=== PATIENT | male | born 1940 | race Caucasian/White ===

== ENCOUNTER 2017-09-04 22:49 | Inpatient (IN) | payer MEDICARE ==
[2017-09-04] MEDS ORDERED: MORPHINE SULFATE 10 MG/ML INJ ONE (23:09)
[2017-09-04] MEDS ORDERED: MORPHINE SULFATE 10 MG/ML INJ IV PRN (23:16)
[2017-09-04] MEDS ORDERED: NORMAL SALINE 1000 ML 1,000 ML IV ONE (23:17)
[2017-09-04] MEDS ORDERED: PIPERACILLIN/TAZOBACTAM 3.375 GM VIAL IV ONE (23:17)
[2017-09-04] MEDS ORDERED: ONDANSETRON HCL INJ/PF 4 MG/2 ML SDV IV ONE (23:17)
--- NOTE | 2017-09-04 23:22 | ER Document Report ---
ED General - General Chief Complaint: Abdominal Pain Stated Complaint: LOWER ABDOMINAL PAIN Time Seen by Provider: 09/04/17 23:04 Notes: Patient is a 77 year old male without chronic medical problems, recently placed on prednisone, meloxicam and has continued takes his aspirin for some low back pain who presents with acute onset of severe, generalized abdominal pain. Family provides majority of the history as the patient is in such severe pain he is unable to answer many of my questions. Family states that tonight shortly after dinner the patient began complaining of severe, cramping, stabbing abdominal pain. Nothing seemed to improve or worsen his pain got progressively worse prompting the family to come to the emergency department. The patient has no history of similar symptoms in the past. He does not take any form of anticoagulation. He has never had abdominal surgery in the past. History is otherwise limited secondary to the patient's acuity. - Related Data Allergies/Adverse Reactions: No Known Allergies Allergy (Unverified 09/05/17 00:49) Past Medical History - General Information source: Patient - Social History Smoking Status: Former Smoker Frequency of alcohol use: None Drug Abuse: None Lives with: Family Family History: Reviewed & Not Pertinent Review of Systems - Review of Systems Notes: Constitutional: Negative for fever. HENT: Negative for sore throat. Eyes: Negative for visual changes. Cardiovascular: Negative for chest pain. Respiratory: Negative for shortness of breath. Gastrointestinal: Positive for abdominal pain Genitourinary: Negative for dysuria. Musculoskeletal: Negative for back pain. Skin: Negative for rash. Neurological: Negative for headaches, weakness or numbness. 10 point ROS negative except as marked above and in HPI. Physical Exam - Vital signs Vitals: Pulse Resp BP Pulse Ox 55 L 20 123/69 98 09/04/17 22:57 09/04/17 22:57 09/04/17 22:57 09/04/17 22:57 Interpretation: Bradycardic Notes: PHYSICAL EXAMINATION: GENERAL: Appears extremely ill, pale, diaphoretic and listless HEAD: Atraumatic, normocephalic. EYES: Pupils equal round and reactive to light, extraocular movements intact, sclera anicteric, conjunctiva are normal. ENT: nares patent, oropharynx clear without exudates. Moderately dry mucous membranes. NECK: Normal range of motion, supple without lymphadenopathy LUNGS: Breath sounds clear to auscultation bilaterally and equal. No wheezes rales or rhonchi. HEART: Regular rate and rhythm without murmurs ABDOMEN: Firm, diffuse involuntary guarding. Bedside fast shows positive free fluid in the right upper quadrant view as well as in the pelvic view. EXTREMITIES: no pitting or edema. No cyanosis. NEUROLOGICAL: No focal neurological deficits. Moves all extremities spontaneously and on command. PSYCH: Listless, somewhat anxious SKIN: Cool, pale, diaphoretic Course - Re-evaluation Re-evalutation: 09/04/17 23:20 Patient presents extremely ill in appearance, pale, diaphoretic, somewhat listless. Patient has a rigid abdomen, has been taking prednisone, meloxicam, aspirin for back pain and I immediately assessed the patient upon arrival. A bedside FAST exam shows free fluid in the right upper quadrant as well as in the pelvic window. Patient will immediately go to CT scan without waiting for labs as he is critically ill in appearance and I cannot wait for that duration of time as he could further deteriorate. As soon as the CT has been completed, will discuss with radiology and surgery. Patient is critically ill and will require frequent reassessments. 09/04/17 23:51 I have reviewed the CT and it appears to show free fluid and air in the abdomen and pelvis. I have immediately contacted the surgeon plant floor automation manager Dr. Westbrook and asked him to come to the bedside immediately. Will continue to reassess the patient at regular intervals. He is receiving IV fluids as well as IV Zosyn. 09/05/17 00:18 Patient continues to be hemodynamically within normal limits but continues to be very ill in appearance, pale, diaphoretic and holding his abdomen. Dr. Westbrook has assessed the patient and will admit to the operating room. Continue to monitor until that time. 09/05/17 0045 Patient going to the operating room at this time - Vital Signs Vital signs: Temp Pulse Resp BP Pulse Ox 97.7 F 55 L 20 152/77 H 99 09/04/17 23:16 09/04/17 22:57 09/05/17 00:39 09/05/17 00:39 09/05/17 00:39 - Laboratory Result Diagrams: 09/04/17 23:12 09/04/17 23:12 Laboratory results interpreted by me: 09/04/17 09/04/17 23:12 23:12 WBC 11.1 H RBC 4.18 L Sodium 136.1 L BUN 51 H Creatinine 1.57 H Est GFR ( Amer) 52 L Est GFR (Non-Af Amer) 43 L Glucose 142 H Calcium 10.8 H Direct Bilirubin 0.5 H - Diagnostic Test Radiology reviewed: Image reviewed, Reports reviewed Radiology results interpreted by me: 09/05/17 00:18 CT abdomen pelvis: Free air and fluid in the abdomen and pelvis - EKG Interpretation by Me Additional EKG results interpreted by me: 09/05/17 03:19 Sinus rhythm. Rate 65. No ST elevations or depressions. QTC is 445. Critical Care Note - Critical Care Note Total time excluding time spent on procedures (mins): 38 Comments: Critical care time spent obtaining history from patient or surrogate, discussions with consultants, development of treatment plan with patient or surrogate, evaluation of patient's response to treatment, examination of patient , ordering and performing treatments and interventions, ordering and review of laboratory studies, re-evaluation of patient's condition, ordering and review of radiographic studies and review of old charts Discharge - Discharge Clinical Impression: Acute abdomen, Intra-abdominal free air of unknown etiology Intra-abdominal fluid Qualifiers: Ascites type: other type Qualified Code(s): R18.8 - Other ascites Condition: Critical Disposition: ADMITTED INPATIENT Admitting Provider: Surgicalist Unit Admitted: OR
[2017-09-04 23:26] LABS: ABSOLUTE LYMPHOCYTES (AUTO) 2.6 10^3/uL (0.5-4.7); ABSOLUTE MONOCYTES (AUTO) 0.5 10^3/uL (0.1-1.4); BASOPHILS % (AUTO) 0.4 % (0-2); HEMATOCRIT 39.8 % (37.9-51.0); HEMOGLOBIN 13.8 g/dL (13.5-17.0); LYMPHOCYTES % (AUTO) 23.6 % (13-45); MEAN CORPUSCULAR HEMOGLOBIN 33.1 pg (27.0-33.4); MEAN CORPUSCULAR HGB CONC 34.7 g/dL (32.0-36.0); MEAN CORPUSCULAR VOLUME 95 fl (80-97); MONOCYTES % (AUTO) 4.4 % (3-13); PLATELET COUNT 193 10^3/uL (150-450); RED BLOOD COUNT 4.18 10^6/uL (4.35-5.55); RED CELL DISTRIBUTION WIDTH 13.4 % (11.5-14.0); SEGMENTED NEUTROPHILS % (AUTO) 71.6 % (42-78); TOTAL CELLS COUNTED % (AUTO) 100 %; WHITE BLOOD COUNT 11.1 10^3/uL (4.0-10.5)
[2017-09-04 23:54] LABS: ALANINE AMINOTRANSFERASE 25 U/L (21-72); ALBUMIN 3.9 g/dL (3.5-5.0); ALKALINE PHOSPHATASE 73 U/L (38-126); ANION GAP 8 (5-19); ASPARTATE AMINO TRANSFERASE 22 U/L (17-59); BILIRUBIN,DIRECT 0.5 mg/dL (0.0-0.4); BILIRUBIN,TOTAL 0.7 mg/dL (0.2-1.3); BLOOD UREA NITROGEN 51 mg/dL (7-20); CALCIUM 10.8 mg/dL (8.4-10.2); CARBON DIOXIDE 29 mmol/L (22-30); CHLORIDE 99 mmol/L (98-107); GLUCOSE 142 mg/dL (75-110); POTASSIUM 4.7 mmol/L (3.6-5.0); SODIUM 136.1 mmol/L (137-145); TOTAL PROTEIN 6.7 g/dL (6.3-8.2)
--- NOTE | 2017-09-05 00:08 | RADIOLOGY REPORT (SQ) ---
EXAM DESCRIPTION: CT ABDOMEN PELVIS WITH IV CONTRAST COMPLETED DATE/TME: 09/04/2017 23:04 CLINICAL HISTORY: 77 years Male, lower ab pain Comparison: None. Technique: IV contrast. Coronal and sagittal reformat. This exam was performed according to our departmental dose-optimization program, which includes automated exposure control, adjustment of the mA and/or kV according to patient size and/or use of iterative reconstruction technique.[facility]: Dose Right [facility]: CareDose [facility]: Dose Right [facility]: Teradose 4D [facility]: Kabbage LIMITATIONS: None Findings: No ascites. Moderate vacuum disc desiccation between the L2 and S1 levels, moderate coronary arterial consultation, moderate ascites including bilateral subdiaphragmatic, right lower abdominal quadrant, and pelvis. 5.1 cm diameter prostate. Colonic diverticulosis. Mild diffuse small bowel mural thickening and small cysts surrounding streaky fat. 2.3 cm likely benign right renal cyst. Posterior element resection at the L 3-L5 levels. Moderate irregular endplates at the L3-L4 level. Paraspinal soft tissues appear unremarkable. Moderate sclerosis of vertebral bodies between the L2 and L4 levels. Normal-appearing appendix partially visualized. Inferior thorax, liver, gallbladder, pancreas, spleen, adrenals, renal system, pelvic organs, lymphatics, vasculature, and musculoskeleton appear otherwise unremarkable. IMPRESSION: 1. Mild diffuse inflammation of small bowel. Moderate ascites. Normal appearing appendix partially visualized. Differential etiologies include infectious, inflammatory, and neoplastic processes. Consider IV and oral contrast CT surveillance as clinically warranted. 2. Irregular vertebral endplates at the L3-L4 level. Differential diagnosis includes advanced osteoarthritis and infectious discitis. Recommend further evaluation with contrast MRI and/or laboratory correlation.
[2017-09-05] MEDS ORDERED: METOCLOPRAMIDE HCL INJ/PF 10 MG/2 ML SDV ONE (00:09)
[2017-09-05] MEDS ORDERED: METOCLOPRAMIDE HCL INJ/PF 10 MG/2 ML SDV IV ONE (00:09)
--- NOTE | 2017-09-05 00:26 | PDOC H&P ---
History of Present Illness Admission Date/PCP: 09/05/17 Patient complains of: abdominal pain History of Present Illness: WALLY OWEN is a 77 year old male wiyh the sudden onset of abdominal pain 3 hrs prior to coming to ER, now localized in the lower abdomen. The patient is on steriods 20 mg Prednisone daily and Mobic for back pain. A CT scan A/P shows free intraperitineal fluid and air.o Social History Information Source: Patient Lives with: Family Smoking Status: Former Smoker Frequency of Alcohol Use: None Hx Recreational Drug Use: No Hx Prescription Drug Abuse: No Family History Family History: Reviewed & Not Pertinent Parental Family History Reviewed: No Children Family History Reviewed: No Sibling(s) Family History Reviewed.: No Physical Exam Vital Signs: Temp Pulse Resp BP Pulse Ox 55 L 20 123/69 98 09/04/17 22:57 09/04/17 22:57 09/04/17 22:57 09/04/17 22:57 Intake & Output 09/03/17 09/04/17 09/05/17 06:59 06:59 06:59 Weight 72.3 kg General appearance: PRESENT: mild distress Head exam: PRESENT: atraumatic Eye exam: PRESENT: EOMI Mouth exam: PRESENT: neck supple Teeth exam: PRESENT: edentulous Neck exam: PRESENT: full ROM Respiratory exam: PRESENT: clear to auscultation mathew Cardiovascular exam: PRESENT: RRR GI/Abdominal exam: PRESENT: hypoactive bowel sounds, tenderness - diffusely Rectal exam: PRESENT: deferred Extremities exam: PRESENT: full ROM Musculoskeletal exam: PRESENT: full ROM Neurological exam: PRESENT: alert, oriented to time, oriented to situation Psychiatric exam: PRESENT: anxious Skin exam: PRESENT: warm Results Laboratory Results: 09/04/17 23:12 09/04/17 23:12 09/04/17 09/04/17 23:12 23:12 WBC 11.1 H RBC 4.18 L Hgb 13.8 Hct 39.8 MCV 95 MCH 33.1 MCHC 34.7 RDW 13.4 Plt Count 193 Seg Neutrophils % 71.6 Lymphocytes % 23.6 Monocytes % 4.4 Eosinophils % 0.0 Basophils % 0.4 Absolute Neutrophils 8.0 Absolute Lymphocytes 2.6 Absolute Monocytes 0.5 Absolute Eosinophils 0.0 Absolute Basophils 0.0 Sodium 136.1 L Potassium 4.7 Chloride 99 Carbon Dioxide 29 Anion Gap 8 BUN 51 H Creatinine 1.57 H Est GFR ( Amer) 52 L Est GFR (Non-Af Amer) 43 L Glucose 142 H Calcium 10.8 H Total Bilirubin 0.7 AST 22 ALT 25 Alkaline Phosphatase 73 Total Protein 6.7 Albumin 3.9 Assessment & Plan - Diagnosis (1) Perforated bowel Is this a current diagnosis for this admission?: Yes - Plan Summary Plan Summary: A/ free intraperitoneal air and fluid sudden inset abdominal pain 3 hrs prior to coming to ER Patiemt on 20 mg Prednisone daily for back issues Patient on Mobic daily for back issues P/ Emergent exploratory laparotomy, bowel resection, repair of perforated viscus, ostomy Procedure, risks, benefits, complications explained to the patient and family, their questions were answer, and he decides to proceed. Zosyn 3.375 gr IVPB preop Hydrocortisone 100 mg IVP preop IV Fluids
[2017-09-05] MEDS ORDERED: BUPIVACAINE HCL 0.5%-EPI 1:200000 INJ/PF 30 ML VIAL ONE (00:28)
[2017-09-05 00:56] LABS: APPEARANCE,URINE CLEAR; BILIRUBIN,URINE NEGATIVE (NEGATIVE); COLOR,URINE YELLOW; GLUCOSE, URINE NEGATIVE (NEGATIVE); KETONES,URINE NEGATIVE (NEGATIVE); LEUKOCYTE ESTERASE,URINE NEGATIVE (NEGATIVE); NITRITE,URINE NEGATIVE (NEGATIVE); PROTEIN,URINE NEGATIVE (NEGATIVE); URINE SPECIFIC GRAVITY 1.035; UROBILINOGEN,URINE NEGATIVE mg/dL (<2.0)
[2017-09-05] MEDS ORDERED: EPHEDRINE SULFATE INJ 50 MG/1 ML AMPULE ONE (00:56)
[2017-09-05] MEDS ORDERED: FENTANYL CITRATE INJ/PF 250 MCG/5 ML AMPULE ONE (00:56)
[2017-09-05] MEDS ORDERED: PROPOFOL INJ 200 MG/20 ML VIAL IV ONE (00:57)
[2017-09-05] MEDS ORDERED: MORPHINE SULFATE 10 MG/ML INJ ONE (00:57)
[2017-09-05] MEDS ORDERED: BUPIVACAINE INJ/PF LIPOSOME/PF 266 MG/20 ML SDV ONE (02:39)
[2017-09-05] MEDS ORDERED: METRONIDAZOLE 500 MG/NS RTU 0 MG/0 ML RTUPB IV ONE (03:14)
[2017-09-05] MEDS ORDERED: METOPROLOL TARTRATE PF/INJ 5 MG/5 ML SDV IV ONE (03:43)
[2017-09-05] MEDS ORDERED: PIPERACILLIN/TAZOBACTAM 3.375 GM VIAL IV PRN (04:41)
[2017-09-05] MEDS ORDERED: ONDANSETRON HCL INJ/PF 4 MG/2 ML SDV IV PRN (04:43)
[2017-09-05] MEDS ORDERED: FLUCONAZOLE 400 MG/NS RTU 400 MG/200 ML RTUPB IV ONE (04:45)
[2017-09-05] MEDS ORDERED: PHARMACY COMMUNICATION ORDER MC NR (05:15)
[2017-09-05 05:34] LABS: HEMATOCRIT 37.8 % (37.9-51.0); HEMOGLOBIN 13.2 g/dL (13.5-17.0); MEAN CORPUSCULAR HEMOGLOBIN 33.3 pg (27.0-33.4); MEAN CORPUSCULAR HGB CONC 34.8 g/dL (32.0-36.0); MEAN CORPUSCULAR VOLUME 96 fl (80-97); PLATELET COUNT 159 10^3/uL (150-450); RED BLOOD COUNT 3.95 10^6/uL (4.35-5.55); RED CELL DISTRIBUTION WIDTH 13.4 % (11.5-14.0); WHITE BLOOD COUNT 7.5 10^3/uL (4.0-10.5)
[2017-09-05] MEDS: NORMAL SALINE 1000 ML 1,000 ML IV PRN ×2 (05:50→17:12)
[2017-09-05 06:18] LABS: ANION GAP 8 (5-19); BLOOD UREA NITROGEN 44 mg/dL (7-20); CALCIUM 9.6 mg/dL (8.4-10.2); CARBON DIOXIDE 26 mmol/L (22-30); CHLORIDE 102 mmol/L (98-107); GLUCOSE 133 mg/dL (75-110); POTASSIUM 4.7 mmol/L (3.6-5.0); SODIUM 135.9 mmol/L (137-145)
--- NOTE | 2017-09-05 08:44 | RADIOLOGY REPORT (SQ) ---
EXAM DESCRIPTION: KUB/ABDOMEN (SINGLE VIEW) COMPLETED DATE/TIME: 09/05/2017 7:57 am REASON FOR STUDY: Check Placement of NG Tube COMPARISON: None. NUMBER OF VIEWS: One view. TECHNIQUE: Supine radiographic image of the abdomen acquired. LIMITATIONS: None. FINDINGS: BOWEL GAS PATTERN: Normal bowel gas pattern. No dilated loops. CALCIFICATIONS: No suspicious calcifications. SOFT TISSUES: No gross mass or suggestion of organomegaly. HARDWARE: Nasogastric tube with the tip in the stomach. Surgical drain and midline skin sapna. BONES: No acute fracture. No worrisome bone lesions. OTHER: No other significant finding. IMPRESSION: POSTOPERATIVE ABDOMEN. NASOGASTRIC TUBE WITH THE TIP IN STOMACH. TECHNICAL DOCUMENTATION: JOB ID: [id number]- All Rights Reserved Reading location - IP/workstation name: [email or web address]
[2017-09-05] MEDS ORDERED: HYDROCORTISONE SOD SUCCINATE INJ/PF 100 MG/2 ML SDV IV SCH (10:00)
[2017-09-05] MEDS ORDERED: ENOXAPARIN SODIUM INJ 40 MG/0.4 ML DISP.SYRIN SUBCUT SCH (10:00)
--- NOTE | 2017-09-05 10:06 | EKG REPORT ---
SEVERITY:- NORMAL ECG - SINUS RHYTHM : Confirmed by: Viral Harris 05-Sep-2017 10:05:25
[2017-09-05] MEDS: PIPERACILLIN SODIUM/TAZOBACTAM 3.375 GM in NORMAL SALINE 100 ML IV SCH ×3 (10:37→17:08)
[2017-09-05] MEDS: PANTOPRAZOLE SODIUM 40 MG VIAL IV SCH ×2 (11:24→17:08)
[2017-09-05] MEDS: METOPROLOL TARTRATE PF/INJ 5 MG/5 ML SDV IV SCH ×3 (11:25→21:59)
[2017-09-05] MEDS ORDERED: DEXAMETHASONE SOD PHOSPHATE INJ 4 MG/1 ML VIAL ONE (14:16)
[2017-09-05] MEDS ORDERED: ROCURONIUM BROMIDE INJ 50 MG/5 ML VIAL IV ONE (14:16)
[2017-09-05] MEDS ORDERED: NEOSTIGMINE METHYLSULFATE 10 MG/10 ML VIAL ONE (14:16)
[2017-09-05] MEDS ORDERED: SUCCINYLCHOLINE CHLORIDE INJ 200 MG/10 ML VIAL ONE (14:16)
[2017-09-05] MEDS ORDERED: ONDANSETRON HCL INJ/PF 4 MG/2 ML SDV ONE (14:16)
[2017-09-05] MEDS ORDERED: GLYCOPYRROLATE 1 MG/5 ML SYRINGE ONE (14:16)
--- NOTE | 2017-09-05 14:19 | PDOC CONSULTATION ---
History of Present Illness Admission Date/PCP: 09/05/17 00:22 Patient complains of: abdominal pain History of Present Illness: WALLY OWEN is a 77 year old male with a past medical history of reflux, chronic back pain and hypertension, who presented to the ED complaining of abdominal pain. Patient states that he has a history of abdominal pain secondary to reflux. Patient states for the last 2 weeks he has been having abdominal pain. States he takes medicine for his reflux and has been taking it. States that he does not recall the name of the medicine but he takes it daily. Patient is visiting from [place] and last night after dinner he started to have some abdominal pain which would not resolve as it normally does. This morning he came to the ED for evaluation and was found to have perforated duodenal ulcer. Patient also states that for the past few weeks to months he has been taking ibuprofen 200 mg tabs about 4-6 tablets daily for his chronic back pain. Patient also states that he had an MRI which shows "mass" of his back for which his doctor started him on Solu-Medrol and he has been taking it. States due to his chronic back pain this is why he was taking his ibuprofen daily. He has also been taking Meloxicam for his back pain on top of his Ibuprofen. He does admit that he has not taken his ibuprofen with food every time. This morning he did undergo emergent surgery for his perforated duodenal ulcer. Hospitalist group has been consulted for medical management. Past Medical History Cardiac Medical History: Reports: Hypertension Denies: Atrial Fibrillation, Myocardial Infarction Pulmonary Medical History: Reports: None Denies: Pneumonia, Respiratory Failure EENT Medical History: Reports: None Neurological Medical History: Reports: None Malignancy Medical History: Reports: Other - Cancer of the neck but he is not sure what it is GI Medical History: Reports: Gastroesophageal Reflux Disease Social History Lives with: Family Smoking Status: Former Smoker Frequency of Alcohol Use: None Hx Recreational Drug Use: No Hx Prescription Drug Abuse: No - Advance Directive Resuscitation Status: Full Code Family History Family History: Reviewed & Not Pertinent Parental Family History Reviewed: Yes Children Family History Reviewed: Yes Sibling(s) Family History Reviewed.: Yes Medication/Allergy Home Medications: Aspirin [Ecotrin 81 mg EC Tablet] 81 mg PO QHS 09/05/17 Carvedilol [Coreg 12.5 mg Tablet] 12.5 mg PO Q12 06/24/18 Meloxicam [Mobic] 7.5 mg PO DAILYP PRN 09/05/17 Allergies/Adverse Reactions: No Known Allergies Allergy (Unverified 09/05/17 00:49) Physical Exam Vital Signs: Temp Pulse Resp BP Pulse Ox 97.6 F 78 18 160/82 H 99 09/05/17 06:30 09/05/17 06:30 09/05/17 06:30 09/05/17 06:30 09/05/17 07:59 Intake & Output 09/04/17 09/05/17 09/06/17 06:59 06:59 06:59 Intake Total 6725 Output Total 6045 Balance 680 Weight 159 lb 6.307 oz General appearance: PRESENT: no acute distress, other - NG tube able to stop wherever her human resources project coordinator is and her family doctor is a thank you Head exam: PRESENT: atraumatic, normocephalic Eye exam: PRESENT: EOMI. ABSENT: scleral icterus Ear exam: PRESENT: normal external ear exam Mouth exam: PRESENT: moist Neck exam: ABSENT: tracheal deviation Respiratory exam: PRESENT: clear to auscultation mathew, symmetrical Cardiovascular exam: PRESENT: RRR, +S1, +S2 Pulses: PRESENT: +2 pedal pulses bilateral GI/Abdominal exam: PRESENT: hypoactive bowel sounds, soft, tenderness, other - Midline surgical wound with dressing noted- some dried blood- drain noted with serosanguinous fluid. TTP of surgical site Extremities exam: ABSENT: pedal edema Musculoskeletal exam: PRESENT: full ROM Neurological exam: PRESENT: alert, awake, CN II-XII grossly intact Psychiatric exam: PRESENT: normal mood Skin exam: PRESENT: dry, warm Results Laboratory Results: 09/05/17 05:12 09/05/17 05:12 09/05/17 09/05/17 05:12 05:12 WBC 7.5 RBC 3.95 L Hgb 13.2 L Hct 37.8 L MCV 96 MCH 33.3 MCHC 34.8 RDW 13.4 Plt Count 159 Sodium 135.9 L Potassium 4.7 Chloride 102 Carbon Dioxide 26 Anion Gap 8 BUN 44 H Creatinine 1.29 H Est GFR ( Amer) > 60 Est GFR (Non-Af Amer) 54 L Glucose 133 H Calcium 9.6 Impressions: Abdomen/Pelvis CT 09/04/17 23:04 IMPRESSION: 1. Mild diffuse inflammation of small bowel. Moderate ascites. Normal appearing appendix partially visualized. Differential etiologies include infectious, inflammatory, and neoplastic processes. Consider IV and oral contrast CT surveillance as clinically warranted. 2. Irregular vertebral endplates at the L3-L4 level. Differential diagnosis includes advanced osteoarthritis and infectious discitis. Recommend further evaluation with contrast MRI and/or laboratory correlation. KUB X-Ray 09/05/17 05:05 IMPRESSION: POSTOPERATIVE ABDOMEN. NASOGASTRIC TUBE WITH THE TIP IN STOMACH. Assessment & Plan - Diagnosis (1) Perforated bowel Is this a current diagnosis for this admission?: Yes Plan: plan as per surgery. Likely his ulcer was due to overuse of NSAIDs- Ibuprofen and Meloxicam- i have spoken to him about dietary/lifestyle modifications for his GERD. IV fluids and SCDs for prophylaxis for now (2) Essential hypertension Is this a current diagnosis for this admission?: Yes Plan: currently on Lopressor IV since he's NPO - will restart PO meds when NGT is out and he's tolerating diet (3) GERD (gastroesophageal reflux disease) Qualifiers: Esophagitis presence: without esophagitis Qualified Code(s): K21.9 - Gastro -esophageal reflux disease without esophagitis Is this a current diagnosis for this admission?: Yes Plan: I am not sure if he's on any acid suppression at home- but likely he would benefit from Protonix at discharge- but i will speak with surgery/GI when ready (4) Chronic back pain Qualifiers: Back pain location: low back pain Back pain laterality: midline Sciatica presence: without sciatica Qualified Code(s): M54.5 - Low back pain; G89.29 - Other chronic pain; G89.29 - Other chronic pain Is this a current diagnosis for this admission?: Yes Plan: will add pain meds as needed for his back pain. will hold solumedrol for now due to his recent surgery. monitor for now.
--- NOTE | 2017-09-05 14:26 | OPERATIVE REPORT E ---
Operative Report NAME:LEXIE LO : 02/26/1957 AGE: 60Y DATE OF SURGERY: 09/05/17 ROOM: 314 PREOPERATIVE DIAGNOSIS: 1. PERFORATED VISCUS WITH FREE INTRAPERITONEAL AIR. 2. CHRONIC USE OF STEROIDS. POSTOPERATIVE DIAGNOSIS: 1. PERFORATED VISUS WITH FREE INTRAPERITONEAL AIR. 2. CHRONIC USE OF STEROIDS. 3. PERFORATED FIRST PORTION OF DUODENUM. OPERATION: 1. Exploratory laparotomy. 2. Ronal patch repair of perforated first portion of duodenum. SURGEON: HARIKA PEOPLES M.D. UNIVERSAL BANKER: None. BLEEDING: Less than 20 mL COMPLICATION: None. ANESTHESIA: General, plus 20 mL of 1% lidocaine with epinephrine and Exparel 20 mL. DRAINS: Two flat 10 mm Chris-Baron drains. FLUIDS: 200 mL URINE OUTPUT: 300 mL INDICATION AND FINDINGS: A 60-year-old male who presented to the Emergency Room with a history of sudden onset abdominal pain about 3 hours prior to presenting to the Emergency Room. The patient underwent a CAT scan, which revealed the presence of free intraperitoneal air and fluid. A decision was made to take the patient to surgery immediately for laparotomy, repair of perforated viscus. Procedure, risks, benefits, and complications explained to the patient. He understands all the above and decided to proceed. DESCRIPTION OF PROCEDURE: The surgery was done in the operating room. The patient was placed in supine position. General anesthesia induced by endotracheal intubation. The abdomen is shaved and prepped and draped in usual fashion. A midline incision was made from just above and below the umbilicus. The subcutaneous fat was divided with Bovie as well as the linea alba, and the incision was then extended slightly superiorly. The intraperitoneal cavity was entered. A large amount of milky-appearing peritoneal fluid was noted. This was aspirated and sent for aerobic and anaerobic culture and for Gram stain. The exploration was started. A large amount of bilious material was noted and at this point, it was suspected the patient had a perforated peptic ulcer. The incision was extended superiorly from just below the xiphoid process. The peritoneal cavity as then entered dividing the linea alba, and the hand-held retractors were utilized to open the surgical wound. A large amount of bilious material was noted in the right upper quadrant together with food content. This was aspirated and the food content was removed. After this was done, the greater omentum was gently mobilized by hand and the duodenum was exposed. The first portion of the duodenum had a 1.5 cm in diameter perforation without evidence of bleeding. At this point, a patch repair was performed by using 2-0 silk sutures. Two of the sutures were placed full-thickness through and through the duodenal wall entering on one side and exiting on the opposite side of the perforation. A flap of the omentum was then divided with Bovie, rotated, and the different sutures were threaded through the seromuscular of the duodenum and through the flap, and again through the wall of the duodenum. Following this, the omental flap was parachuted on the wound and four 2-0 silk sutures were sequentially tied so to keep the omental flap in position. Additional interrupted 2-0 silk sutures were placed circumferentially to hold in position the omental flap against the duodenal serosa. This was done without difficulty. After this, two 10 mm flat Chris-Baron drains were inserted through separate stab wounds in the right upper quadrant. The superior drain was placed posterior to the repair, infrahepatic position, and a second drain was placed anterior to the repair itself in the right upper quadrant. The peritoneal cavity was irrigated with about 8 L of warm normal saline and food contents were fully removed, and irrigation was done until the peritoneal fluid was clear. After this was accomplished, the abdominal wall was closed with a running #1 looped PDS suture. The abdominal wall was infiltrated with Exparel local anesthetic. The skin was then irrigated with normal saline, all the bleeders were cauterized, and closed with sapna and sterile dressings. The patient tolerated the procedure well, extubated, and transferred to recovery room in satisfactory condition. DICTATING PHYSICIAN: HARIKA PEOPLES M.D. [id number] PHY#: [id number] ID: [id number] JOB#: [id number] ACCT: [id number] cc:HARIKA PEOPLES M.D. > MTDD
[2017-09-05] MEDS: MORPHINE SULFATE 10 MG/ML INJ IV PRN (17:08)
--- NOTE | 2017-09-05 17:22 | PDOC PROGRESS REPORT ---
Subjective Progress Note for:: 09/05/17 Subjective:: Mild abdominal pains Reason For Visit: PERFORATION OF SMALL BOWEL Physical Exam Vital Signs: Temp Pulse Resp BP Pulse Ox 97.6 F 78 18 160/82 H 99 09/05/17 06:30 09/05/17 06:30 09/05/17 06:30 09/05/17 06:30 09/05/17 07:59 Intake & Output 09/04/17 09/05/17 09/06/17 06:59 06:59 06:59 Intake Total 6725 Output Total 6045 Balance 680 Weight 72.3 kg Exam: abd is soft and mild diffuse tenderness. No flatus yet Results Laboratory Results: 09/05/17 05:12 09/05/17 05:12 09/05/17 09/05/17 05:12 05:12 WBC 7.5 RBC 3.95 L Hgb 13.2 L Hct 37.8 L MCV 96 MCH 33.3 MCHC 34.8 RDW 13.4 Plt Count 159 Sodium 135.9 L Potassium 4.7 Chloride 102 Carbon Dioxide 26 Anion Gap 8 BUN 44 H Creatinine 1.29 H Est GFR ( Amer) > 60 Est GFR (Non-Af Amer) 54 L Glucose 133 H Calcium 9.6 Impressions: Abdomen/Pelvis CT 09/04/17 23:04 IMPRESSION: 1. Mild diffuse inflammation of small bowel. Moderate ascites. Normal appearing appendix partially visualized. Differential etiologies include infectious, inflammatory, and neoplastic processes. Consider IV and oral contrast CT surveillance as clinically warranted. 2. Irregular vertebral endplates at the L3-L4 level. Differential diagnosis includes advanced osteoarthritis and infectious discitis. Recommend further evaluation with contrast MRI and/or laboratory correlation. KUB X-Ray 09/05/17 05:05 IMPRESSION: POSTOPERATIVE ABDOMEN. NASOGASTRIC TUBE WITH THE TIP IN STOMACH. Assessment & Plan - Time Time Spent with patient: 15-24 minutes - Plan Summary Plan Summary: Continue NGT and IV antibiotics and leave drains Appreciate Hospitalist consult
[2017-09-06] MEDS: PIPERACILLIN SODIUM/TAZOBACTAM 3.375 GM in NORMAL SALINE 100 ML IV SCH ×5 (02:03→23:41)
[2017-09-06] MEDS: PANTOPRAZOLE SODIUM 40 MG VIAL IV SCH ×3 (02:03→17:40)
[2017-09-06] MEDS: METOPROLOL TARTRATE PF/INJ 5 MG/5 ML SDV IV SCH ×4 (04:03→20:12)
[2017-09-06 06:01] LABS: ANION GAP 5 (5-19); BLOOD UREA NITROGEN 49 mg/dL (7-20); CARBON DIOXIDE 25 mmol/L (22-30); CHLORIDE 107 mmol/L (98-107); GLUCOSE 109 mg/dL (75-110); POTASSIUM 4.5 mmol/L (3.6-5.0); SODIUM 136.5 mmol/L (137-145)
[2017-09-06 06:04] LABS: HEMATOCRIT 31.1 % (37.9-51.0); MEAN CORPUSCULAR HEMOGLOBIN 33.9 pg (27.0-33.4); MEAN CORPUSCULAR HGB CONC 35.1 g/dL (32.0-36.0); MEAN CORPUSCULAR VOLUME 97 fl (80-97); PLATELET COUNT 112 10^3/uL (150-450); RED BLOOD COUNT 3.22 10^6/uL (4.35-5.55); RED CELL DISTRIBUTION WIDTH 13.9 % (11.5-14.0); WHITE BLOOD COUNT 12.9 10^3/uL (4.0-10.5)
[2017-09-06 06:30] LABS: HEMOGLOBIN 10.9 g/dL (13.5-17.0)
[2017-09-06] MEDS: FLUCONAZOLE 200 MG/NS RTU 200 MG/100 ML RTUPB IV SCH (09:42)
[2017-09-06] MEDS ORDERED: HYDROCORTISONE SOD SUCCINATE INJ/PF 100 MG/2 ML SDV IV SCH (10:00)
--- NOTE | 2017-09-06 11:01 | PDOC PROGRESS REPORT ---
Subjective Progress Note for:: 09/06/17 Subjective:: No complaints; think symptoms would like his Mares catheter removed. No complaints otherwise Reason For Visit: PERFORATION OF SMALL BOWEL Physical Exam Vital Signs: Temp Pulse Resp BP Pulse Ox 98.0 F 80 18 147/76 H 96 09/06/17 08:07 09/06/17 08:07 09/06/17 08:07 09/06/17 08:07 09/06/17 08:07 Intake & Output 09/05/17 09/06/17 09/07/17 06:59 06:59 06:59 Intake Total 6725 2885 Output Total 6098 1170 Balance 680 1715 Weight 72.3 kg 76.2 kg General appearance: PRESENT: no acute distress - Looks good; sitting in chair; no distress GI/Abdominal exam: PRESENT: other - Dressing dry with 10 sanguinous the other is discharge. Abdomen appropriately tender but no peritoneal signs. Results Laboratory Results: 09/06/17 05:08 09/06/17 05:08 09/06/17 09/06/17 05:08 05:08 WBC 12.9 H RBC 3.22 L Hgb 10.9 L D Hct 31.1 L MCV 97 MCH 33.9 H MCHC 35.1 RDW 13.9 Plt Count 112 L Sodium 136.5 L Potassium 4.5 Chloride 107 Carbon Dioxide 25 Anion Gap 5 BUN 49 H Creatinine 1.41 H Est GFR ( Amer) 59 L Est GFR (Non-Af Amer) 49 L Glucose 109 Calcium 8.0 L Impressions: Abdomen/Pelvis CT 09/04/17 23:04 IMPRESSION: 1. Mild diffuse inflammation of small bowel. Moderate ascites. Normal appearing appendix partially visualized. Differential etiologies include infectious, inflammatory, and neoplastic processes. Consider IV and oral contrast CT surveillance as clinically warranted. 2. Irregular vertebral endplates at the L3-L4 level. Differential diagnosis includes advanced osteoarthritis and infectious discitis. Recommend further evaluation with contrast MRI and/or laboratory correlation. KUB X-Ray 09/05/17 05:05 IMPRESSION: POSTOPERATIVE ABDOMEN. NASOGASTRIC TUBE WITH THE TIP IN STOMACH. Assessment & Plan - Diagnosis (1) Perforated bowel Is this a current diagnosis for this admission?: Yes Plan: Patient now 2 days status post exploratory laparotomy [place] of anterior gastric perforation with Ronal patch, doing well, no complications. Recommendations: 1. We will have patient undergo contrast swallow with Gastrografin to rule out leak or obstruction; if normal study, remove NG tube 2.. Get out of bed hike in halls. 3. Remove Mares catheter.
[2017-09-06] MEDS: MORPHINE SULFATE 10 MG/ML INJ IV PRN (13:01)
[2017-09-06] MEDS ORDERED: KETOROLAC TROMETHAMINE INJ/PF 30 MG/1 ML SDV IV PRN (14:22)
--- NOTE | 2017-09-06 15:49 | RADIOLOGY REPORT (SQ) ---
EXAM DESCRIPTION: UGI SERIES COMPLETED DATE/TIME: 09/06/2017 12:20 pm REASON FOR STUDY: Evaluate gastric perforation closure perforated gastric ulcer postop COMPARISON: None. TECHNIQUE: Under fluoroscopic guidance, Gastrografin was instilled through the patient's indwelling NG tube. Fluoroscopic spot images and routine radiographic images acquired and stored on PACS. LIMITATIONS: None. FLUOROSCOPY TIME: FLUORO TIME: 1 minutes 49 seconds of fluoroscopy was used. 23 images saved to PACS. FINDINGS: GASTRO-ESOPHAGEAL JUNCTION: NG tube is seen passing the GE junction with the tip in the mery men of the stomach. Mild gastroesophageal reflux seen. STOMACH: No ulcerations or masses are seen. There is no delay in gastric emptying. GASTRIC OUTLET: No delay in emptying. DUODENAL BULB: There is luminal narrowing through the area of the pylorus and duodenal bulb which may be related to previous surgery. Postop edema is most likely cause. No extravasation or leak of con trast is seen. Contrast flows through the area and into the duodenum without delay. DUODENUM: Mucosa normal. No extrinsic masses or malrotation. PROXIMAL JEJUNUM: Normal mucosal pattern. No dilatation, segmentation, strictures or masses. NON-GI TRACT STRUCTURES: No significant finding. OTHER: No other significant finding. IMPRESSION: POSTOP EDEMA SEEN WITHIN THE AREA OF THE PYLORUS AND DUODENAL BULB WITHOUT EVIDENCE OF E XTRAVASATION OR LEAK. NO GASTRIC OUTLET OBSTRUCTION IS IDENTIFIED. COMMENT: Quality ID [id number]: Final reports for procedures using fluoroscopy that document radiation exp osure indices, or exposure time and number of fluorographic images (if radiation exposure indices are not available) TECHNICAL DOCUMENTATION: JOB ID: [id number] 1912 [employer]- All Rights Reserved Reading location - IP/workstation name: [email or web address]
--- NOTE | 2017-09-06 16:18 | PDOC PROGRESS REPORT ---
Subjective Progress Note for:: 09/06/17 - Seen on rounds this afternoon Subjective:: Patient states that he still has abdominal pain and also has NG tube in. Reason For Visit: PERFORATION OF SMALL BOWEL Physical Exam Vital Signs: Temp Pulse Resp BP Pulse Ox 98.1 F 68 18 156/72 H 96 09/06/17 11:14 09/06/17 14:00 09/06/17 11:14 09/06/17 11:14 09/06/17 11:14 Intake & Output 09/05/17 09/06/17 09/07/17 06:59 06:59 06:59 Intake Total 6725 2885 Output Total 6045 1170 Balance 680 1715 Weight 159 lb 6.307 oz 167 lb 15.876 oz General appearance: PRESENT: no acute distress, cooperative, thin, other - NG tube noted and draining green colored fluid. Otherwise laying comfortably on bed. Eye exam: PRESENT: EOMI. ABSENT: scleral icterus Mouth exam: PRESENT: moist, neck supple Neck exam: ABSENT: tenderness, tracheal deviation Respiratory exam: PRESENT: clear to auscultation mathew, symmetrical Cardiovascular exam: PRESENT: +S1, +S2 Pulses: PRESENT: +2 pedal pulses bilateral GI/Abdominal exam: PRESENT: hypoactive bowel sounds, soft, tenderness - Midline scar noted with dressing and MALCOM drain with serosanguineous fluid in both of them. Gentrourinary exam: PRESENT: other - Mares noted Extremities exam: ABSENT: joint swelling, pedal edema Musculoskeletal exam: PRESENT: full ROM. ABSENT: tenderness Neurological exam: PRESENT: alert, awake, oriented to person, oriented to place , oriented to time, CN II-XII grossly intact Skin exam: PRESENT: dry, warm Results Laboratory Results: 09/06/17 05:08 09/06/17 05:08 09/06/17 09/06/17 05:08 05:08 WBC 12.9 H RBC 3.22 L Hgb 10.9 L D Hct 31.1 L MCV 97 MCH 33.9 H MCHC 35.1 RDW 13.9 Plt Count 112 L Sodium 136.5 L Potassium 4.5 Chloride 107 Carbon Dioxide 25 Anion Gap 5 BUN 49 H Creatinine 1.41 H Est GFR ( Amer) 59 L Est GFR (Non-Af Amer) 49 L Glucose 109 Calcium 8.0 L Impressions: Abdomen/Pelvis CT 09/04/17 23:04 IMPRESSION: 1. Mild diffuse inflammation of small bowel. Moderate ascites. Normal appearing appendix partially visualized. Differential etiologies include infectious, inflammatory, and neoplastic processes. Consider IV and oral contrast CT surveillance as clinically warranted. 2. Irregular vertebral endplates at the L3-L4 level. Differential diagnosis includes advanced osteoarthritis and infectious discitis. Recommend further evaluation with contrast MRI and/or laboratory correlation. KUB X-Ray 09/05/17 05:05 IMPRESSION: POSTOPERATIVE ABDOMEN. NASOGASTRIC TUBE WITH THE TIP IN STOMACH. Upper GI Series 09/06/17 10:57 IMPRESSION: POSTOP EDEMA SEEN WITHIN THE AREA OF THE PYLORUS AND DUODENAL BULB WITHOUT EVIDENCE OF EXTRAVASATION OR LEAK. NO GASTRIC OUTLET OBSTRUCTION IS IDENTIFIED. Assessment & Plan - Diagnosis (1) Perforated bowel Is this a current diagnosis for this admission?: Yes (2) Essential hypertension Is this a current diagnosis for this admission?: Yes (3) GERD (gastroesophageal reflux disease) Qualifiers: Esophagitis presence: without esophagitis Qualified Code(s): K21.9 - Gastro -esophageal reflux disease without esophagitis Is this a current diagnosis for this admission?: Yes (4) Chronic back pain Qualifiers: Back pain location: low back pain Back pain laterality: midline Sciatica presence: without sciatica Qualified Code(s): M54.5 - Low back pain; G89.29 - Other chronic pain; G89.29 - Other chronic pain Is this a current diagnosis for this admission?: Yes - Plan Summary Plan Summary: Postop day #2 status post exploratory laparotomy secondary to gastric perforation. Surgery is following. Patient improving well. This afternoon he will get a upper GI study and if everything goes well then his NG tube will be removed. He is having good urine output and does have a Mares in. Pain control is well managed. His blood pressure has been a little bit high and he is on IV metoprolol since he is unable to tolerate p.o. with his n.p.o. status. I will add IV hydralazine 10 mg every 4 as needed for systolic blood pressure greater than 160. Continue to monitor. Hopefully we will discharge him home when he is able to tolerate a diet. He does have an elevated white count but likely this is reactive secondary to his surgery. He is already on Zosyn and fluconazole at this time. Continue to monitor. He remains afebrile. His platelet count is also low-we will continue to monitor with repeat CBC. His creatinine is elevated at this time-he is receiving IV fluids. I am not sure if he has a underlying chronic renal disease or not. If his renal function does not improve in the next 1-2 days then we may consider ultrasound. For now we will monitor with a.m. labs. Thank you for consulting the hospitalist group at [facility]-we appreciate your consult. Please feel free to contact us if you have any questions
[2017-09-06] MEDS: HYDRALAZINE HCL INJ/PF 20 MG/1 ML SDV IV PRN ×2 (17:40→23:55)
[2017-09-07] MEDS: PANTOPRAZOLE SODIUM 40 MG VIAL IV SCH ×3 (03:19→18:02)
[2017-09-07] MEDS: METOPROLOL TARTRATE PF/INJ 5 MG/5 ML SDV IV SCH (03:19)
[2017-09-07] MEDS: NORMAL SALINE 1000 ML 1,000 ML IV PRN (03:31)
[2017-09-07 05:12] LABS: HEMATOCRIT 31.1 % (37.9-51.0); HEMOGLOBIN 10.7 g/dL (13.5-17.0); MEAN CORPUSCULAR HEMOGLOBIN 33.3 pg (27.0-33.4); MEAN CORPUSCULAR HGB CONC 34.3 g/dL (32.0-36.0); MEAN CORPUSCULAR VOLUME 97 fl (80-97); PLATELET COUNT 107 10^3/uL (150-450); RED CELL DISTRIBUTION WIDTH 13.9 % (11.5-14.0); WHITE BLOOD COUNT 14.3 10^3/uL (4.0-10.5)
[2017-09-07 05:37] LABS: ANION GAP 7 (5-19); BLOOD UREA NITROGEN 43 mg/dL (7-20); CALCIUM 8.3 mg/dL (8.4-10.2); CARBON DIOXIDE 23 mmol/L (22-30); CHLORIDE 112 mmol/L (98-107); GLUCOSE 88 mg/dL (75-110); POTASSIUM 3.7 mmol/L (3.6-5.0); SODIUM 142.3 mmol/L (137-145)
[2017-09-07] MEDS: PIPERACILLIN SODIUM/TAZOBACTAM 3.375 GM in NORMAL SALINE 100 ML IV SCH ×4 (06:19→23:49)
--- NOTE | 2017-09-07 09:35 | PROGRESS NOTE E ---
Progress Note NAME: WALLY OWEN : 1940 AGE: 77Y DATE: 09/07/2017 ROOM: 534 SUBJECTIVE: The patient is lying in bed. He states that he feels much better today. The patient actually had a bowel movement and the pain has been minimal the patient denies any shortness of breath, dizziness, or chest pain. No fevers, chill. The patient has been afebrile. His blood pressures have been slightly elevated, but in a decent range. The patient does not voice any other concerns at this time. REVIEW OF SYSTEMS: The rest of review of systems is negative. MEDICATIONS: Reviewed. OBJECTIVE: GENERAL: The patient is a 77-year-old male who is awake, alert and oriented to person, place, time, and situation. He is verbal, conversational. He does not appear to be in any acute distress. VITAL SIGNS: Temperature 97.5, pulse 88, respirations 16, blood pressure 158/78, oxygen saturation is 92% on room air. SKIN: Warm and dry. No rashes. He is not diaphoretic. HEENT: Pupils equal, round and reactive to light and accommodation. Conjunctivae pink. NECK: There is no evidence of JVP. CARDIOVASCULAR: Heart is regular. There is no murmur or rub. CHEST: Clear, symmetrical, unlabored. ABDOMEN: Postsurgical. EXTREMITIES: There is no edema. PSYCHIATRIC: Appropriate affect. Pleasant mood. DIAGNOSTICS: Lab values are as follows: Hematology obtained on 09/07/2017: WBC 14.3, hemoglobin 10.7, hematocrit 31.1, platelet count 107,000. Chemistries obtained on 09/07/2017: Sodium 142, potassium 3.7, chloride 112, carbon dioxide 23, BUN 46, creatinine 1.2, glucose 88, calcium 8.3. IMPRESSION AND PLAN: 1. Perforated bowel status post operative repair. Management as per primary team. We will continue PPI therapy. We will minimize NSAIDs at this time. 2. Hypertension. Now that the patient is taking p.o., we have resumed the patient's home meds and would discontinue intravenous coverage for now. The patient gets hypertensive with pain. 3. Gastroesophageal reflux disease. Continue PPI. 4. Chronic back pain. The patient was on NSAIDs chronically for this. The patient has been instructed that this is no longer ideal. 5. Acute kidney injury due to dehydration, this has resolved. Creatinine is normalized. We will discontinue intravenous fluids. 6. Hypovolemic/hyponatremia, resolved with fluid resuscitation. CODE STATUS: The patient is a full code. DISPOSITION: Depending on the patient's symptomatology and diagnostic findings, we will reevaluate as needed. The patient is cleared for discharge from a hospitalist perspective. TIME SPENT: On this followup including assessment and plan, physical examination, patient education, review of records, and family meeting is 25 minutes. DICTATING PHYSICIAN: CHIQUITA GARDUNO NP [id number] PHY#: [id number] ID: [id number] JOB#: [id number] ACCT: [id number] cc: > MTDD
[2017-09-07] MEDS ORDERED: HYDROCORTISONE SOD SUCCINATE INJ/PF 100 MG/2 ML SDV IV SCH (10:00)
[2017-09-07] MEDS: CARVEDILOL 12.5 MG TABLET PO SCH ×2 (10:49→22:09)
[2017-09-07] MEDS: FLUCONAZOLE 200 MG/NS RTU 200 MG/100 ML RTUPB IV SCH (10:50)
--- NOTE | 2017-09-07 16:10 | PDOC PROGRESS REPORT ---
Subjective Progress Note for:: 09/07/17 Subjective:: Tolerated liquid diet but easily felt full. Advised to go slow on po liquids . Only POD 2. Reason For Visit: PERFORATION OF SMALL BOWEL Physical Exam Vital Signs: Temp Pulse Resp BP Pulse Ox 98.0 F 62 17 178/97 H 94 09/07/17 07:34 09/07/17 14:00 09/07/17 07:34 09/07/17 07:34 09/07/17 10:34 Intake & Output 09/06/17 09/07/17 09/08/17 06:59 06:59 06:59 Intake Total 2885 2518 Output Total 1170 1020 Balance 1715 1498 Weight 76.2 kg 77.3 kg Results Laboratory Results: 09/07/17 04:55 09/07/17 04:55 09/07/17 09/07/17 04:55 04:55 WBC 14.3 H RBC 3.20 L Hgb 10.7 L Hct 31.1 L MCV 97 MCH 33.3 MCHC 34.3 RDW 13.9 Plt Count 107 L Sodium 142.3 Potassium 3.7 Chloride 112 H Carbon Dioxide 23 Anion Gap 7 BUN 43 H Creatinine 1.20 Est GFR ( Amer) > 60 Est GFR (Non-Af Amer) 59 L Glucose 88 Calcium 8.3 L Impressions: Abdomen/Pelvis CT 09/04/17 23:04 IMPRESSION: 1. Mild diffuse inflammation of small bowel. Moderate ascites. Normal appearing appendix partially visualized. Differential etiologies include infectious, inflammatory, and neoplastic processes. Consider IV and oral contrast CT surveillance as clinically warranted. 2. Irregular vertebral endplates at the L3-L4 level. Differential diagnosis includes advanced osteoarthritis and infectious discitis. Recommend further evaluation with contrast MRI and/or laboratory correlation. KUB X-Ray 09/05/17 05:05 IMPRESSION: POSTOPERATIVE ABDOMEN. NASOGASTRIC TUBE WITH THE TIP IN STOMACH. Upper GI Series 09/06/17 10:57 IMPRESSION: POSTOP EDEMA SEEN WITHIN THE AREA OF THE PYLORUS AND DUODENAL BULB WITHOUT EVIDENCE OF EXTRAVASATION OR LEAK. NO GASTRIC OUTLET OBSTRUCTION IS IDENTIFIED. Assessment & Plan - Time Time Spent with patient: 15-24 minutes - Plan Summary Plan Summary: Continue sips of clear liquids for now until POD 4
[2017-09-07] MEDS: ACETAMINOPHEN 325 MG TABLET PO PRN (16:19)
[2017-09-08] MEDS: PANTOPRAZOLE SODIUM 40 MG VIAL IV SCH (03:34)
[2017-09-08] MEDS: PIPERACILLIN SODIUM/TAZOBACTAM 3.375 GM in NORMAL SALINE 100 ML IV SCH ×3 (06:08→18:55)
[2017-09-08 06:35] LABS: HEMATOCRIT 28.4 % (37.9-51.0); HEMOGLOBIN 9.9 g/dL (13.5-17.0); MEAN CORPUSCULAR HEMOGLOBIN 33.7 pg (27.0-33.4); MEAN CORPUSCULAR HGB CONC 34.9 g/dL (32.0-36.0); MEAN CORPUSCULAR VOLUME 97 fl (80-97); PLATELET COUNT 100 10^3/uL (150-450); RED BLOOD COUNT 2.94 10^6/uL (4.35-5.55); RED CELL DISTRIBUTION WIDTH 13.6 % (11.5-14.0)
[2017-09-08 06:38] LABS: ANION GAP 7 (5-19); BLOOD UREA NITROGEN 42 mg/dL (7-20); CALCIUM 7.7 mg/dL (8.4-10.2); CARBON DIOXIDE 23 mmol/L (22-30); CHLORIDE 112 mmol/L (98-107); GLUCOSE 85 mg/dL (75-110); POTASSIUM 3.5 mmol/L (3.6-5.0); SODIUM 141.6 mmol/L (137-145)
[2017-09-08] MEDS: FLUCONAZOLE 200 MG/NS RTU 200 MG/100 ML RTUPB IV SCH (09:23)
[2017-09-08] MEDS: CARVEDILOL 12.5 MG TABLET PO SCH ×2 (09:23→22:36)
[2017-09-08] MEDS ORDERED: HYDROCORTISONE SOD SUCCINATE INJ/PF 100 MG/2 ML SDV IV SCH (10:00)
[2017-09-08] MEDS: HYDRALAZINE HCL INJ/PF 20 MG/1 ML SDV IV PRN (20:58)
[2017-09-08] MEDS: ACETAMINOPHEN 325 MG TABLET PO PRN (21:02)
[2017-09-08] MEDS ORDERED: CHLORPHENIRAMINE MALEATE 4 MG TABLET PO ONE (23:41)
[2017-09-08] MEDS ORDERED: HYDRALAZINE HCL 50 MG TABLET PO ONE (23:45)
[2017-09-08] MEDS ORDERED: FLUTICASONE NASAL SPRAY 50 MCG/SPRY 120 SPRAY/16 GM NASL ONE (23:45)
[2017-09-08] MEDS ORDERED: FLUTICASONE NASAL SPRAY 50 MCG/SPRY 120 SPRAY/16 GM ONE (23:59)
[2017-09-08] MEDS ORDERED: CHLORPHENIRAMINE MALEATE 4 MG TABLET ONE (23:59)
[2017-09-09] MEDS: PIPERACILLIN SODIUM/TAZOBACTAM 3.375 GM in NORMAL SALINE 100 ML IV SCH ×3 (00:11→11:36)
[2017-09-09] MEDS: HYDRALAZINE HCL 50 MG TABLET PO SCH ×2 (05:05→13:31)
[2017-09-09 05:23] LABS: HEMATOCRIT 27.9 % (37.9-51.0); HEMOGLOBIN 9.6 g/dL (13.5-17.0); MEAN CORPUSCULAR HEMOGLOBIN 33.1 pg (27.0-33.4); MEAN CORPUSCULAR HGB CONC 34.3 g/dL (32.0-36.0); MEAN CORPUSCULAR VOLUME 97 fl (80-97); RED BLOOD COUNT 2.89 10^6/uL (4.35-5.55); RED CELL DISTRIBUTION WIDTH 13.7 % (11.5-14.0); WHITE BLOOD COUNT 9.2 10^3/uL (4.0-10.5)
[2017-09-09 05:34] LABS: ANION GAP 7 (5-19); BLOOD UREA NITROGEN 30 mg/dL (7-20); CALCIUM 7.6 mg/dL (8.4-10.2); CARBON DIOXIDE 22 mmol/L (22-30); CHLORIDE 110 mmol/L (98-107); GLUCOSE 102 mg/dL (75-110); POTASSIUM 3.3 mmol/L (3.6-5.0)
[2017-09-09 05:40] LABS: PLATELET COUNT 96 10^3/uL (150-450)
[2017-09-09] MEDS: FLUTICASONE NASAL SPRAY 50 MCG/SPRY 120 SPRAY/16 GM NASL SCH ×2 (09:09→21:04)
[2017-09-09] MEDS: FLUCONAZOLE 200 MG/NS RTU 200 MG/100 ML RTUPB IV SCH (09:09)
[2017-09-09] MEDS: CARVEDILOL 12.5 MG TABLET PO SCH ×2 (09:09→21:01)
--- NOTE | 2017-09-09 17:24 | PDOC PROGRESS REPORT ---
Subjective Progress Note for:: 09/09/17 Reason For Visit: PERFORATION OF SMALL BOWEL Physical Exam Vital Signs: Temp Pulse Resp BP Pulse Ox 98.4 F 79 24 H 172/76 H 98 09/09/17 15:20 09/09/17 15:20 09/09/17 15:20 09/09/17 15:20 09/09/17 15:20 Intake & Output 09/08/17 09/09/17 09/10/17 06:59 06:59 06:59 Intake Total 1928 833 503 Output Total 50 115 50 Balance 1878 718 453 Weight 79.5 kg 79.5 kg Results Laboratory Results: 09/09/17 05:01 09/09/17 05:01 09/09/17 09/09/17 05:01 05:01 WBC 9.2 RBC 2.89 L Hgb 9.6 L Hct 27.9 L MCV 97 MCH 33.1 MCHC 34.3 RDW 13.7 Plt Count 96 L Sodium 139.0 Potassium 3.3 L Chloride 110 H Carbon Dioxide 22 Anion Gap 7 BUN 30 H Creatinine 1.05 Est GFR ( Amer) > 60 Est GFR (Non-Af Amer) > 60 Glucose 102 Calcium 7.6 L 09/05/17 01:47 Abdominal Fluid Gram Stain - Final 09/05/17 01:47 Abdominal Fluid Body Fluid Culture - Final Peptostreptococcus Species No Aerobic Organisms 09/05/17 01:47 Abdomen - Incision Site Fungal Smear - Final 09/05/17 01:47 Abdomen - Incision Site Fungal Smear - Final Impressions: Abdomen/Pelvis CT 09/04/17 23:04 IMPRESSION: 1. Mild diffuse inflammation of small bowel. Moderate ascites. Normal appearing appendix partially visualized. Differential etiologies include infectious, inflammatory, and neoplastic processes. Consider IV and oral contrast CT surveillance as clinically warranted. 2. Irregular vertebral endplates at the L3-L4 level. Differential diagnosis includes advanced osteoarthritis and infectious discitis. Recommend further evaluation with contrast MRI and/or laboratory correlation. KUB X-Ray 09/05/17 05:05 IMPRESSION: POSTOPERATIVE ABDOMEN. NASOGASTRIC TUBE WITH THE TIP IN STOMACH. Upper GI Series 09/06/17 10:57 IMPRESSION: POSTOP EDEMA SEEN WITHIN THE AREA OF THE PYLORUS AND DUODENAL BULB WITHOUT EVIDENCE OF EXTRAVASATION OR LEAK. NO GASTRIC OUTLET OBSTRUCTION IS IDENTIFIED. Assessment & Plan - Diagnosis (1) Perforated duodenal ulcer Is this a current diagnosis for this admission?: Yes - Plan Summary Plan Summary: This is a 77-year-old male status post repair of a perforated duodenal ulcer. The patient is doing well. He tolerated liquids well. I will advance his diet to a regular diet. I have encouraged him to ambulate and use his incentive spirometer. If he continues to progress, plan for discharge tomorrow.
[2017-09-09] MEDS ORDERED: LOSARTAN POTASSIUM 50 MG TABLET PO ONE (18:00)
[2017-09-09] MEDS: HYDRALAZINE HCL INJ/PF 20 MG/1 ML SDV IV PRN (20:48)
[2017-09-10] MEDS ORDERED: LOSARTAN POTASSIUM 50 MG TABLET PO SCH (10:00)
[2017-09-10] MEDS: FLUTICASONE NASAL SPRAY 50 MCG/SPRY 120 SPRAY/16 GM NASL SCH (10:35)
[2017-09-10] MEDS: CARVEDILOL 12.5 MG TABLET PO SCH (10:36)
[2017-09-10 12:33] VITALS: BP 171/78
--- NOTE | 2017-10-18 14:24 | DISCHARGE SUMMARY E ---
Discharge Summary NAME: WALLY OWEN : 1940 AGE: 77Y ADMITTED: 09/05/2017 DISCHARGED: 09/10/2017 FINAL DIAGNOSIS: PERFORATION OF THE FIRST PORTION DUODENUM WITH FREE INTRAPERITONEAL AIR. PROCEDURE: Exploratory laparotomy, repair of perforated duodenum with Ronal patch, 09/05/17. SURGEON: Dr. Westbrook. HOSPITAL COURSE: This is a 77-year-old male who complained of severe abdominal pains 3 hours prior to going to the ED. CT scan of the abdomen in the ED revealed free intraperitoneal fluid and air. Patient was diffusely tender in the abdomen. Patient immediately taken to the OR on 09/05/17 for repair of perforated first portion of the duodenum with Ronal patch. Surgeon: Dr. Westbrook. Postoperatively, patient did well. Started gradually on liquids on 09/07/17 and regular diet on 09/09/17, which he tolerated well. He was then discharged improved on 09/10/17 with the above final diagnosis. Patient to be followed up in the Surgical Clinic in 2 weeks. DICTATING PHYSICIAN: VINCE CORNEJO M.D. [id number] PHY#: [id number] ID: [id number] JOB#: [id number] ACCT: [id number] cc:Rock FARMER M.D. >
== END 2017-09-10 15:04 | disposition home or self-care (01) | DRG 330 ==
LOC: ER 22:49 → EH 09-05 00:22 → 4S 09-05 04:49 → 5 09-06 05:51
PROVIDERS: ADMIT Surgery; ATTEND Surgery
PROC: 0DU907Z Supplement Duodenum with Autologous Tissue Substitute, Open Approach (ICD-10-PCS; principal; 2017-09-05 01:30)
DX: K26.5 Chronic or unspecified duodenal ulcer with perforation (principal); N17.9 Acute kidney failure, unspecified; E87.1 Hypo-osmolality and hyponatremia; R18.8 Other ascites; K21.9 Gastro-esophageal reflux disease without esophagitis; G89.29 Other chronic pain; M54.9 Dorsalgia, unspecified; I10 Essential (primary) hypertension; E86.0 Dehydration; B96.89 Other specified bacterial agents as the cause of diseases classified elsewhere; Z79.52 Long term (current) use of systemic steroids; Z87.891 Personal history of nicotine dependence; Z85.819 Personal history of malignant neoplasm of unspecified site of lip, oral cavity, and pharynx
CPT/HCPCS: 00790; 36415; 74018; 74177; 74247; 80048; 80053; 81001; 85025; 85027; 86850; 86900; 86901; 87070; 87075; 87077; 87101; 87205; 87493; 93005; 93010; 94799; 96365; 96375; 99291; C9290; G8978-GP; G8979-GP; G8980-GP; J0330; J0360; J1100; J1450; J1650; J2270; J2405; J2543; J2704; J2765; J3010; J3490; J7030; S0164